=== PATIENT | female | born 2000 | race Two or more races ===

== ENCOUNTER 2025-03-20 13:52 | Emergency (ER) | payer OTHER ==
[~2025-03-20] VITALS: Ht 152.4 cm; Wt 89.8 kg
[2025-03-20] MEDS ORDERED: PRENATABS FA T1 EACH PO (14:55)
[2025-03-20] MEDS ORDERED: FAMOTIDINE/PF 20 MG/2 ML VIAL IV PUSH STA (15:26)
[2025-03-20 16:58] LABS: BASO % 0.4 % (0.1-1.2); EOS # 0.08 (0.04-0.54); EOS % 1.0 % (0.7-7.0); LYMPH # 1.74 (1.18-3.74); LYMPH % 21.5 % (19.3-53.1); MEAN PLATELET VOLUME 10.20 fl (9.4-12.4); MONO # 0.56 (0.24-0.82); MONO % 6.9 % (4.7-12.5); NEUT # 5.67 (1.56-6.13); NEUT % 70.0 % (34.0-71.1); RED CELL DISTRIBUTION WIDTH 12.8 % (11.6-14.4)
[2025-03-20 17:36] LABS: URINE APPEARANCE Turbid; URINE BILIRRUBIN Negative (NEGATIVE); URINE COLOR Yellow; URINE GLUCOSE Negative (NEGATIVE); URINE KETONE Negative (NEGATIVE); URINE LEUKOCYTE Moderate; URINE NITRATE Negative; URINE PROTEIN Trace (NEGATIVE); URINE UROBILINOGEN 1.0 E.U./dl
[2025-03-20 17:43] LABS: URINE CAST 3.64 uL (0.0-1.40); URINE EPITHELIAL CELLS 44.6 uL (0.0-38.8); URINE RBC 15.0 uL (0.0-20.8); URINE WBC 665.9 uL (0.0-23.2)
[2025-03-20 17:57] LABS: ALT/SGPT 22.0 U/L (12-78); AST/SGOT 14.0 U/L (15-37); BILIRUBIN TOTAL 0.25 mg/dL (0.3-1.2); BUN CREA RATIO 21.0 (7.0-25.0); CREATININE SERUM 0.66 mg/dL (0.55-1.02); GFR 109.12; GLOBULINA 3.6 G/DL (2.4-3.5); GLUCOSE FASTING 87.0 mg/dL (65-100); OSMOLALITY SERUM 279.0 MOSM/KG (275-295)
[2025-03-20 18:39] LABS: URINE BACTERIA > 9821.5 uL (0.0-1933); URINE BLOOD TRACE
[2025-03-20 18:42] LABS: URINE YEAST NEGATIVE /hpf
[2025-03-20] MEDS ORDERED: CEFTRIAXONE SODIUM 1,000 MG VIAL IM STA (19:16)
[2025-03-20] MEDS ORDERED: ACETAMINOPHEN 325 MG TABLET PO STA (19:17)
== END 2025-03-20 19:38 | disposition home or self-care (01) ==
LOC: ER 13:53
PROVIDERS: General Practice
DX: O26.891 Other specified pregnancy related conditions, first trimester (principal); Z3A.10 10 weeks gestation of pregnancy; R51.9 Headache, unspecified; N39.0 Urinary tract infection, site not specified